=== PATIENT | female | born 1965 | race Caucasian/White ===

== ENCOUNTER 2016-09-29 21:30 | Emergency (ER) | payer SELFPAY ==
[2016-09-29 21:36] VITALS: PULSE 88; TEMP 98.6; O2SAT 99
--- NOTE | 2016-09-29 22:27 | C.PDOC ---
Time Seen by Provider: 09/29/16 21:51 Chief Complaint (Nursing): Trauma History Per: Patient History/Exam Limitations: no limitations Onset/Duration Of Symptoms: Sudden Onset Current Symptoms Are (Timing): Still Present Quality: "Pain" Severity: Moderate Exacerbating Factor(s): Movement Past Medical History Reviewed: Historical Data, Nursing Documentation, Vital Signs Vital Signs: Last Vital Signs Temp 98.6 F 09/29/16 21:33 Pulse 88 09/29/16 21:33 Resp 20 09/29/16 22:34 BP Pulse Ox 99 09/29/16 22:27 - Medical History PMH: No Chronic Diseases Surgical History: Family History: States: Unknown Family Hx - Social History Hx Alcohol Use: No Hx Substance Use: No Review Of Systems Except As Marked, All Systems Reviewed And Found Negative. Musculoskeletal: Positive for: Other (wrist pain) Physical Exam - Physical Exam Appears: Non-toxic, Other (in pain holding wrist) Skin: Normal Color, Warm, Dry, No Ecchymosis Head: Atraumatic, Normacephalic Eye(s): bilateral: Normal Inspection Neck: Normal ROM Chest: Symmetrical Extremity: Left: Atraumatic, Normal Color And Temperature, Normal ROM, Right: Other (Right wrist with tenderness and swelling to radial aspect and limited ROM. Normal radial pulse. Remainder of hand and digits normal ROM and nontender. ) Pulses: Right Radial: Normal Neurological/Psych: Oriented x3, Normal Speech ED Course And Treatment O2 Sat by Pulse Oximetry: 99 Orthopedic Type: Volar (orthoglass) Location: Right, Wrist Consent obtained: Verbal Performed by: Mid-level Provider Diagnosis: Fracture Type: Closed, Comminuted Location: Distal Bone: Radius Capillary refill: Normal Distal Sensation: Normal Compartment: Normal Distal Sensation: Normal Patient tolerated procedure: Well Notes:: Volar orthoglass splint was applied by [place]. No evidence of neurovascular compromise post-application. Patient tolerated well. Arm sling was applied. Medical Decision Making Medical Decision Making: Impression: 50 y.o female with right wrist injury Plan: Ice pack applied. Motrin given during triage. XRay right wrist ordered Progress: Xray shows distal radius comminuted fracture and ulnar styloid fx. 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 Patient instructed on splint care and to take analgesics. She was instructed to follow up with orthopedic in 1-4 days without fail. Disposition Counseled Patient/Family Regarding: Need For Followup, Rx Given - Disposition Referrals: Maral Hernández MD [Staff Provider] - Katelyn Walsh MD [Staff Provider] - Disposition: HOME/ ROUTINE Disposition Time: 22:26 Condition: STABLE Additional Instructions: Your xray shows a wrist fracture. It is very important you follow up with orthopedic within 1-4 days. A splint has been applied which is a temporary cast. Do not wet splint, keep out of bath, and consider plastic bag. Take pain medication as needed. Seek medical attention if develop any numbness or pins and needle sensation. Prescriptions: Ibuprofen [Motrin] 600 mg PO Q8 #30 tab Acetaminophen with Codeine [Tylenol with Codeine No. 3 300 mg-30 mg] 1 tab PO Q8 PRN #20 tab PRN Reason: Pain, Moderate (4-7) Instructions: Wrist Fracture in Adults (ED), Splint Care (ED) - POA Present On Arrival: None - Clinical Impression Clinical Impression: Distal radius fracture, right
[2016-09-29 22:35] VITALS: RESP 20
--- NOTE | 2016-09-30 11:38 | RAD ---
PROCEDURE: Right Wrist Radiographs. HISTORY: pain s.p fall COMPARISON: None. FINDINGS: BONES: Comminuted intra-articular distal radial fracture with dorsal angulation of distal fragment. No significant displacement. Ulnar styloid process fracture, nondisplaced. No carpal fracture appreciated. Incidentally noted thick smooth periosteal reaction along ulnar diaphysis common nonspecific. JOINTS: Intra-articular fracture as above. SOFT TISSUES: Joint effusion noted, manifested as bowing of pronator fat pad. OTHER FINDINGS: None. IMPRESSION: Comminuted intra-articular nondisplaced distal radial fracture with mild dorsal angulation. Nondisplaced ulnar styloid process fracture.
== END 2016-09-29 22:34 | disposition home or self-care (01) ==
LOC: C.ER 21:30
DX: S52.591A Other fractures of lower end of right radius, initial encounter for closed fracture (principal); S52.614A Nondisplaced fracture of right ulna styloid process, initial encounter for closed fracture; W01.0XXA Fall on same level from slipping, tripping and stumbling without subsequent striking against object, initial encounter